=== PATIENT | female | born 1960 | race African-American/Black ===

== ENCOUNTER 2018-12-31 10:18 | Inpatient (IN) ==
[2018-12-31] MEDS ORDERED: ALBUTEROL/IPRATROPIUM 3 ML NEB RESP TX STA (11:19)
[2018-12-31] MEDS ORDERED: ONDANSETRON 4 MG/2 ML VIAL IV STA (11:19)
[2018-12-31] MEDS ORDERED: MORPHINE 4 MG/1 ML VIAL IV STA (11:19)
[2018-12-31 13:05] LABS: Basophils % 0.5 % (0.0-0.8); Eosinophils # 0.1 10*3/uL (0.0-0.87); Eosinophils % 1.8 % (0.00-10.9); Hematocrit 26.6 VOL% (35.7-47.0); Hemoglobin 8.1 GM/DL (12.0-16.0); Immature Granulocytes % 0.5 %; Immature Granulocytes Absolute 0.02 #; Lymphocytes # 0.7 10*3/uL (1.4-4.0); Lymphocytes % 16.3 % (21.3-54.2); Mean Corpuscular HGB Conc 30.5 GM/DL (32-36); Mean Corpuscular Volume 80.9 FL (87-102); Mean Platelet Volume 12.1 FL (9.6-12.0); Monocytes % 13.3 % (1.7-12.7); Neutrophils % 67.6 % (38.7-73.9); Platelet Count 207 T/CUMM (130-400); Red Blood Count 3.29 MC/CUMM (3.8-5.5); Red Cell Distribution Width 14.8 % (9.3-17.3); White Blood Count 4.4 T/CUMM (4-12)
[2018-12-31 13:12] LABS: INR 1.1
[2018-12-31 13:20] LABS: Alanine Aminotransferase 22 U/L (13-56); Albumin 2.3 G/DL (3.4-5.0); Alkaline Phosphatase 81 U/L (45-117); Aspartate Amino Transferase 31 U/L (0-37); Bilirubin,Total < 0.39 MG/DL (0.2-1.0); Blood Urea Nitrogen 25 MG/DL (7-18); Calcium 8.5 MG/DL (8.5-10.1); Glucose 88 MG/DL (74-106); Osmolality,Calculated 272.1 MOS/KG (273-304); Total Protein 6.3 G/DL (6.4-8.3)
[2018-12-31] MEDS ORDERED: ACETAMINOPHEN 325 MG TABLET PO PRN (14:55)
[2018-12-31] MEDS: ENOXAPARIN 100 MG/ML SYRINGE SUBCUT SCH (18:14)
[2018-12-31] MEDS: ALBUTEROL/IPRATROPIUM 3 ML NEB RESP TX SCH ×2 (20:16→23:20)
[2018-12-31] MEDS: amLODIPine 5 MG TABLET PO SCH (20:24)
[2018-12-31] MEDS: CARVEDILOL 3.125 MG TABLET PO SCH (20:24)
[2018-12-31] MEDS: CYPROHEPTADINE 4 MG TABLET PO SCH (20:24)
[2018-12-31] MEDS: busPIRone 10 MG TABLET PO SCH (20:24)
[2019-01-01] MEDS: ALBUTEROL/IPRATROPIUM 3 ML NEB RESP TX SCH ×3 (02:00→12:03)
[2019-01-01 05:10] LABS: Basophils % 0.5 % (0.0-0.8); Eosinophils # 0.1 10*3/uL (0.0-0.87); Eosinophils % 3.5 % (0.00-10.9); Hematocrit 25.5 VOL% (35.7-47.0); Hemoglobin 7.9 GM/DL (12.0-16.0); Immature Granulocytes % 0.7 %; Immature Granulocytes Absolute 0.03 #; Lymphocytes # 0.8 10*3/uL (1.4-4.0); Lymphocytes % 20.6 % (21.3-54.2); Mean Corpuscular Volume 79.9 FL (87-102); Mean Platelet Volume 10.5 FL (9.6-12.0); Monocytes % 15.2 % (1.7-12.7); Neutrophils % 59.5 % (38.7-73.9); Platelet Count 195 T/CUMM (130-400); Red Blood Count 3.19 MC/CUMM (3.8-5.5)
[2019-01-01] MEDS: ENOXAPARIN 100 MG/ML SYRINGE SUBCUT SCH ×2 (05:17→16:34)
[2019-01-01 05:49] LABS: Calcium 8.8 MG/DL (8.5-10.1); Osmolality,Calculated 279.7 MOS/KG (273-304); Risk Ratio 3.38; Thyroid Stimulating Hormone 2.66 uIU/ml (0.358-3.74); VLDL CHOLESTEROL 27.6 MG/DL
[2019-01-01] MEDS ORDERED: MORPHINE 4 MG/1 ML VIAL IV ONE (08:28)
[2019-01-01] MEDS ORDERED: SIMVASTATIN 10 MG TABLET PO SCH (09:00)
[2019-01-01] MEDS ORDERED: PANTOPRAZOLE 40 MG TABLET PO SCH (09:00)
[2019-01-01] MEDS ORDERED: [UNRECOGNIZED DRUG - OTHER] PO SCH (09:00)
[2019-01-01] MEDS: CYPROHEPTADINE 4 MG TABLET PO SCH ×2 (09:18→20:33)
[2019-01-01] MEDS: busPIRone 10 MG TABLET PO SCH ×2 (09:18→20:33)
[2019-01-01] MEDS: CARVEDILOL 3.125 MG TABLET PO SCH ×2 (09:18→20:33)
[2019-01-01] MEDS: POTASSIUM CHLORIDE 20 MEQ TABLET PO SCH (09:18)
[2019-01-01] MEDS: MULTIVITAMIN (CENTRUM) TABLET PO SCH (09:18)
[2019-01-01] MEDS: amLODIPine 5 MG TABLET PO SCH ×2 (09:19→20:33)
[2019-01-01] MEDS: PANTOPRAZOLE 40 MG TABLET PO SCH (09:19)
[2019-01-01] MEDS: ASPIRIN EC 81 MG TABLET PO SCH (09:19)
[2019-01-01 12:50] LABS: Apearance,Urine Slightly Hazy (Clear); Bacteria,Urine Occasional /HPF (Few); Bilirubin,Urine Negative (Negative); Blood, Urine Negative (Negative); Glucose,Urine (UA) Negative (Negative); Ketones,Urine 5 mg/dL (Negative); Mucus,Urine Occasional /LPF (Occasional); Nitrite,Urine Negative (Negative); Protein,Urine Negative; RBC,Urine 2 /HPF (0-4); Squamous Epithelial Cell,Urine Occasional /HPF (0-10); Urine Color Yellow (Yellow); Urine Urobilinogen < 2.0 EU/DL (0.2-1.0); WBC,Urine 9 /HPF (0-6)
[2019-01-01] MEDS ORDERED: clonazePAM 0.5 MG TABLET PO ONE (13:28)
[2019-01-01] MEDS ORDERED: ALBUTEROL 1.25 MG/3 ML NEB RESP TX PRN (14:12)
[2019-01-01] MEDS ORDERED: MAGNESIUM CITRATE 300 ML BOTTLE PO ONE (18:19)
[2019-01-01] MEDS: clonazePAM 0.5 MG TABLET PO SCH (20:34)
[2019-01-02] MEDS: HYDROmorphone 2 MG TABLET PO PRN (00:50)
[2019-01-02] MEDS: ENOXAPARIN 100 MG/ML SYRINGE SUBCUT SCH ×2 (04:50→17:00)
[2019-01-02] MEDS: HYDROmorphone 2 MG/1 ML VIAL IV PRN ×2 (05:19→21:33)
[2019-01-02 07:56] LABS: Basophils % 0.2 % (0.0-0.8); Eosinophils # 0.1 10*3/uL (0.0-0.87); Eosinophils % 2.2 % (0.00-10.9); Hematocrit 25.9 VOL% (35.7-47.0); Hemoglobin 7.9 GM/DL (12.0-16.0); Immature Granulocytes % 0.7 %; Immature Granulocytes Absolute 0.03 #; Lymphocytes # 0.7 10*3/uL (1.4-4.0); Lymphocytes % 16.8 % (21.3-54.2); Mean Corpuscular HGB Conc 30.5 GM/DL (32-36); Mean Corpuscular Volume 81.4 FL (87-102); Mean Platelet Volume 10.7 FL (9.6-12.0); Monocytes % 11.5 % (1.7-12.7); Neutrophils % 68.6 % (38.7-73.9); Platelet Count 217 T/CUMM (130-400); Red Blood Count 3.18 MC/CUMM (3.8-5.5); Red Cell Distribution Width 15.1 % (9.3-17.3); White Blood Count 4.2 T/CUMM (4-12)
[2019-01-02 08:12] LABS: Calcium 8.5 MG/DL (8.5-10.1); Osmolality,Calculated 279.8 MOS/KG (273-304)
[2019-01-02] MEDS: CYPROHEPTADINE 4 MG TABLET PO SCH ×2 (08:47→21:32)
[2019-01-02] MEDS: ASPIRIN EC 81 MG TABLET PO SCH (08:47)
[2019-01-02] MEDS: MULTIVITAMIN (CENTRUM) TABLET PO SCH (08:48)
[2019-01-02] MEDS: PANTOPRAZOLE 40 MG TABLET PO SCH (08:48)
[2019-01-02] MEDS: amLODIPine 5 MG TABLET PO SCH ×2 (08:48→21:32)
[2019-01-02] MEDS: CARVEDILOL 3.125 MG TABLET PO SCH ×2 (08:48→21:32)
[2019-01-02] MEDS: POTASSIUM CHLORIDE 20 MEQ TABLET PO SCH (08:48)
[2019-01-02] MEDS: clonazePAM 0.5 MG TABLET PO SCH ×2 (14:30→21:33)
[2019-01-02] MEDS: busPIRone 10 MG TABLET PO SCH ×3 (14:43→21:32)
[2019-01-02] MEDS: MORPHINE IR 15 MG TABLET PO PRN (18:30)
[2019-01-03 05:18] LABS: Basophils % 0.3 % (0.0-0.8); Eosinophils # 0.1 10*3/uL (0.0-0.87); Eosinophils % 1.7 % (0.00-10.9); Hematocrit 26.9 VOL% (35.7-47.0); Immature Granulocytes % 0.5 %; Immature Granulocytes Absolute 0.03 #; Lymphocytes # 0.9 10*3/uL (1.4-4.0); Lymphocytes % 14.8 % (21.3-54.2); Mean Corpuscular HGB Conc 29.7 GM/DL (32-36); Mean Platelet Volume 12.4 FL (9.6-12.0); Neutrophils % 68.7 % (38.7-73.9); Platelet Count 257 T/CUMM (130-400); Red Blood Count 3.24 MC/CUMM (3.8-5.5); Red Cell Distribution Width 15.4 % (9.3-17.3)
[2019-01-03] MEDS: ENOXAPARIN 100 MG/ML SYRINGE SUBCUT SCH ×2 (05:45→17:50)
[2019-01-03] MEDS: HYDROmorphone 2 MG/1 ML VIAL IV PRN (07:58)
[2019-01-03 08:19] LABS: Calcium 8.4 MG/DL (8.5-10.1); Osmolality,Calculated 278.1 MOS/KG (273-304)
[2019-01-03] MEDS: POTASSIUM CHLORIDE 20 MEQ TABLET PO SCH (08:31)
[2019-01-03] MEDS ORDERED: DEXTROSE 10% 250 ML BAG IV ONE (08:55)
[2019-01-03] MEDS ORDERED: CALCIUM GLUCONATE 1,000 MG in SODIUM CHLORIDE 0.9% 100 ML IV ONE (08:55)
[2019-01-03] MEDS ORDERED: INSULIN REGULAR 100 UNIT/ML IV ONE (08:55)
[2019-01-03] MEDS ORDERED: SODIUM BICARBONATE 50 MEQ/50 ML VIAL IV ONE (08:56)
[2019-01-03] MEDS ORDERED: SODIUM POLYSTYRENE SULFATE 15 GM/60 ML BOTTLE PO STA (08:57)
[2019-01-03] MEDS ORDERED: SODIUM CHLORIDE 0.9% 1,000 ML IV SCH (10:30)
[2019-01-03] MEDS ORDERED: MORPHINE 4 MG/1 ML VIAL IV PRN (10:44)
[2019-01-03] MEDS: ASPIRIN EC 81 MG TABLET PO SCH (12:29)
[2019-01-03] MEDS: clonazePAM 0.5 MG TABLET PO SCH ×2 (12:29→20:47)
[2019-01-03] MEDS: MULTIVITAMIN (CENTRUM) TABLET PO SCH (12:29)
[2019-01-03] MEDS: CARVEDILOL 3.125 MG TABLET PO SCH ×2 (12:29→20:47)
[2019-01-03] MEDS: CYPROHEPTADINE 4 MG TABLET PO SCH ×2 (12:29→20:47)
[2019-01-03] MEDS: PANTOPRAZOLE 40 MG TABLET PO SCH (12:30)
[2019-01-03] MEDS: busPIRone 10 MG TABLET PO SCH ×2 (12:30→20:47)
[2019-01-03] MEDS: amLODIPine 5 MG TABLET PO SCH ×2 (12:30→20:47)
[2019-01-03] MEDS ORDERED: SODIUM POLYSTYRENE SULFATE 15 GM/60 ML BOTTLE PO ONE (17:15)
[2019-01-04] MEDS: SODIUM CHLORIDE 0.9% 1,000 ML IV SCH ×2 (00:16→11:31)
[2019-01-04] MEDS: ENOXAPARIN 100 MG/ML SYRINGE SUBCUT SCH (04:55)
[2019-01-04 05:23] LABS: Basophils % 0.3 % (0.0-0.8); Eosinophils # 0.1 10*3/uL (0.0-0.87); Eosinophils % 0.8 % (0.00-10.9); Hematocrit 26.6 VOL% (35.7-47.0); Hemoglobin 7.9 GM/DL (12.0-16.0); Immature Granulocytes % 0.5 %; Immature Granulocytes Absolute 0.03 #; Lymphocytes # 0.9 10*3/uL (1.4-4.0); Lymphocytes % 14.5 % (21.3-54.2); Mean Corpuscular HGB Conc 29.7 GM/DL (32-36); Mean Corpuscular Volume 82.4 FL (87-102); Mean Platelet Volume 11.9 FL (9.6-12.0); Monocytes % 13.4 % (1.7-12.7); Neutrophils % 70.5 % (38.7-73.9); Platelet Count 276 T/CUMM (130-400); Red Blood Count 3.23 MC/CUMM (3.8-5.5); Red Cell Distribution Width 15.4 % (9.3-17.3); White Blood Count 6.2 T/CUMM (4-12)
[2019-01-04 05:26] LABS: PT Patient Result 10.9 SECS
[2019-01-04 05:43] LABS: Calcium 8.2 MG/DL (8.5-10.1); Osmolality,Calculated 276.5 MOS/KG (273-304)
[2019-01-04] MEDS: HYDROmorphone 2 MG TABLET PO PRN (05:58)
[2019-01-04] MEDS: MORPHINE IR 15 MG TABLET PO PRN ×3 (08:06→22:26)
[2019-01-04] MEDS: ASPIRIN EC 81 MG TABLET PO SCH (08:10)
[2019-01-04] MEDS: PANTOPRAZOLE 40 MG TABLET PO SCH (08:10)
[2019-01-04] MEDS: FLUCONAZOLE 200 MG TABLET PO SCH (08:10)
[2019-01-04] MEDS: MULTIVITAMIN (CENTRUM) TABLET PO SCH (08:10)
[2019-01-04] MEDS: clonazePAM 0.5 MG TABLET PO SCH ×2 (08:10→22:26)
[2019-01-04] MEDS: amLODIPine 5 MG TABLET PO SCH ×2 (08:10→22:26)
[2019-01-04] MEDS: busPIRone 10 MG TABLET PO SCH ×2 (08:11→22:26)
[2019-01-04] MEDS: CARVEDILOL 3.125 MG TABLET PO SCH ×2 (08:11→22:26)
[2019-01-04] MEDS: CYPROHEPTADINE 4 MG TABLET PO SCH ×2 (08:11→22:25)
[2019-01-04] MEDS: ONDANSETRON 4 MG/2 ML VIAL IV PRN (17:13)
[2019-01-04 18:31] LABS: Troponin I < 0.015 NG/ML (0.00-0.045)
[2019-01-04 21:10] LABS: Troponin I < 0.015 NG/ML (0.00-0.045)
[2019-01-05] MEDS: SODIUM CHLORIDE 0.9% 1,000 ML IV SCH ×2 (00:31→18:44)
[2019-01-05] MEDS: MORPHINE IR 15 MG TABLET PO PRN ×2 (02:11→09:14)
[2019-01-05 05:09] LABS: Basophils % 0.2 % (0.0-0.8); Eosinophils % 0.2 % (0.00-10.9); Hematocrit 25.8 VOL% (35.7-47.0); Hemoglobin 7.7 GM/DL (12.0-16.0); Immature Granulocytes % 0.6 %; Immature Granulocytes Absolute 0.05 #; Lymphocytes % 11.5 % (21.3-54.2); Mean Corpuscular HGB Conc 29.8 GM/DL (32-36); Mean Corpuscular Volume 83.5 FL (87-102); Mean Platelet Volume 11.6 FL (9.6-12.0); Monocytes % 8.7 % (1.7-12.7); Neutrophils % 78.8 % (38.7-73.9); Platelet Count 334 T/CUMM (130-400); Red Blood Count 3.09 MC/CUMM (3.8-5.5); Red Cell Distribution Width 15.8 % (9.3-17.3); White Blood Count 8.6 T/CUMM (4-12)
[2019-01-05 05:34] LABS: Alanine Aminotransferase 35 U/L (13-56); Albumin 2.3 G/DL (3.4-5.0); Alkaline Phosphatase 117 U/L (45-117); Aspartate Amino Transferase 44 U/L (0-37); Bilirubin,Direct < 0.100 MG/DL (0.0-0.20); Bilirubin,Indirect 0.6 MG/DL (0.0-1.0); Blood Urea Nitrogen 50 MG/DL (7-18); Calcium 8.3 MG/DL (8.5-10.1); Glucose 176 MG/DL (74-106); Osmolality,Calculated 276.8 MOS/KG (273-304); Total Protein 6.6 G/DL (6.4-8.3)
[2019-01-05] MEDS ORDERED: SODIUM CHLORIDE 0.9% 1,000 ML IV PRN ×2 (08:56→17:10)
[2019-01-05] MEDS: ONDANSETRON 4 MG/2 ML VIAL IV PRN ×2 (09:13→12:44)
[2019-01-05] MEDS: busPIRone 10 MG TABLET PO SCH ×2 (09:14→22:48)
[2019-01-05] MEDS: PANTOPRAZOLE 40 MG TABLET PO SCH (09:14)
[2019-01-05] MEDS: amLODIPine 5 MG TABLET PO SCH ×2 (09:14→22:30)
[2019-01-05] MEDS: ASPIRIN EC 81 MG TABLET PO SCH (09:14)
[2019-01-05] MEDS: clonazePAM 0.5 MG TABLET PO SCH ×2 (09:14→22:47)
[2019-01-05] MEDS: FLUCONAZOLE 200 MG TABLET PO SCH (09:14)
[2019-01-05] MEDS: CYPROHEPTADINE 4 MG TABLET PO SCH ×2 (09:14→22:48)
[2019-01-05] MEDS: MULTIVITAMIN (CENTRUM) TABLET PO SCH (09:14)
[2019-01-05] MEDS: CARVEDILOL 3.125 MG TABLET PO SCH ×2 (09:15→22:30)
[2019-01-05] MEDS ORDERED: clonazePAM 0.5 MG TABLET PO ONE (11:04)
[2019-01-05] MEDS: ENOXAPARIN 100 MG/ML SYRINGE SUBCUT SCH (12:44)
[2019-01-06] MEDS: clonazePAM 0.5 MG TABLET PO SCH ×3 (04:13→22:10)
[2019-01-06] MEDS: busPIRone 10 MG TABLET PO SCH ×3 (04:13→22:09)
[2019-01-06 05:14] LABS: Hematocrit 29.6 VOL% (35.7-47.0)
[2019-01-06 05:57] LABS: Basophils % 0.2 % (0.0-0.8); Hematocrit 30.6 VOL% (35.7-47.0); Lymphocytes # 1.2 10*3/uL (1.4-4.0); Lymphocytes % 11.1 % (21.3-54.2); Mean Corpuscular HGB Conc 29.4 GM/DL (32-36); Mean Corpuscular Volume 85.5 FL (87-102); Mean Platelet Volume 11.9 FL (9.6-12.0); Monocytes % 8.8 % (1.7-12.7); NRBC # 0.04 10*3/uL; Neutrophils % 78.9 % (38.7-73.9); Platelet Count 343 T/CUMM (130-400); Red Blood Count 3.58 MC/CUMM (3.8-5.5); Red Cell Distribution Width 15.8 % (9.3-17.3); White Blood Count 10.4 T/CUMM (4-12)
[2019-01-06 06:18] LABS: Calcium 8.3 MG/DL (8.5-10.1); Osmolality,Calculated 276.9 MOS/KG (273-304)
[2019-01-06] MEDS ORDERED: SODIUM POLYSTYRENE SULFATE 15 GM/60 ML BOTTLE PO ONE (07:06)
[2019-01-06] MEDS ORDERED: CALCIUM GLUCONATE 2,000 MG in SODIUM CHLORIDE 0.9% 100 ML IV ONE (09:12)
[2019-01-06] MEDS ORDERED: FUROSEMIDE 40 MG/4 ML VIAL IV ONE (10:50)
[2019-01-06] MEDS ORDERED: FUROSEMIDE 100 MG/10 ML VIAL ONE (10:53)
[2019-01-06] MEDS: CARVEDILOL 3.125 MG TABLET PO SCH ×2 (10:55→22:09)
[2019-01-06] MEDS: ASPIRIN EC 81 MG TABLET PO SCH (10:55)
[2019-01-06] MEDS: FLUCONAZOLE 200 MG TABLET PO SCH (10:55)
[2019-01-06] MEDS: amLODIPine 5 MG TABLET PO SCH ×2 (10:55→22:10)
[2019-01-06] MEDS: ENOXAPARIN 100 MG/ML SYRINGE SUBCUT SCH (10:56)
[2019-01-06] MEDS: methylPREDNISolone SOD SUC 40 MG/1 ML VIAL IV SCH ×2 (10:56→22:10)
[2019-01-06] MEDS: MULTIVITAMIN (CENTRUM) TABLET PO SCH (11:15)
[2019-01-06] MEDS: CYPROHEPTADINE 4 MG TABLET PO SCH (11:16)
[2019-01-06 12:39] LABS: Creatinine,Urine Random 143 MG/DL; Total Protein,Urine Random 480 MG/DL; Urea Nitrogen, Urine Random 117 MG/DL
[2019-01-06 16:31] LABS: Basophils % 0.1 % (0.0-0.8); Hematocrit 28.2 VOL% (35.7-47.0); Hemoglobin 8.5 GM/DL (12.0-16.0); Immature Granulocytes % 0.8 %; Immature Granulocytes Absolute 0.09 #; Lymphocytes # 0.7 10*3/uL (1.4-4.0); Lymphocytes % 6.7 % (21.3-54.2); Mean Corpuscular HGB Conc 30.1 GM/DL (32-36); Mean Corpuscular Volume 85.2 FL (87-102); Mean Platelet Volume 11.3 FL (9.6-12.0); Monocytes % 1.7 % (1.7-12.7); Neutrophils % 90.7 % (38.7-73.9); Platelet Count 319 T/CUMM (130-400); Red Blood Count 3.31 MC/CUMM (3.8-5.5); Red Cell Distribution Width 16.1 % (9.3-17.3)
[2019-01-06 16:36] LABS: Pt O2 Delivery Device Other
[2019-01-06 16:37] LABS: ABG Base Excess -4.5 MMOL/L (-2.5-2.5); ABG HCO3 20.6 MMOL/L (20-26); ABG Oxygen Saturation 92.3 % (95-100); ABG PCO2 47.4 MM HG (35-48); ABG PO2 74.6 MM HG (80-95); ABG TCO2 20.8 MMOL/L (23-27)
[2019-01-06 17:14] LABS: Albumin 2.5 G/DL (3.4-5.0); Bilirubin,Total 0.4 MG/DL (0.2-1.0); Calcium 8.5 MG/DL (8.5-10.1); Osmolality,Calculated 279.1 MOS/KG (273-304); Total Protein 6.9 G/DL (6.4-8.3)
[2019-01-06] MEDS ORDERED: SODIUM POLYSTYRENE SULFATE 15 GM/60 ML BOTTLE PO STA (17:23)
[2019-01-07] MEDS: CARVEDILOL 3.125 MG TABLET PO SCH ×2 (01:30→09:14)
[2019-01-07 06:40] LABS: Basophils % 0.1 % (0.0-0.8); Hematocrit 28.6 VOL% (35.7-47.0); Hemoglobin 8.5 GM/DL (12.0-16.0); Immature Granulocytes % 0.8 %; Immature Granulocytes Absolute 0.07 #; Lymphocytes # 0.7 10*3/uL (1.4-4.0); Lymphocytes % 8.2 % (21.3-54.2); Mean Corpuscular HGB Conc 29.7 GM/DL (32-36); Mean Corpuscular Volume 85.4 FL (87-102); Mean Platelet Volume 11.3 FL (9.6-12.0); Monocytes % 3.6 % (1.7-12.7); NRBC # 0.28 10*3/uL; Neutrophils % 87.3 % (38.7-73.9); Platelet Count 316 T/CUMM (130-400); Red Blood Count 3.35 MC/CUMM (3.8-5.5); Red Cell Distribution Width 16.3 % (9.3-17.3); White Blood Count 8.4 T/CUMM (4-12)
[2019-01-07 07:09] LABS: Calcium 8.7 MG/DL (8.5-10.1); Osmolality,Calculated 282.1 MOS/KG (273-304)
[2019-01-07] MEDS ORDERED: INSULIN REGULAR 100 UNIT/ML IV ONE (07:50)
[2019-01-07] MEDS ORDERED: DEXTROSE 50% 25 GM/50 ML VIAL IV ONE (07:50)
[2019-01-07] MEDS ORDERED: SODIUM BICARBONATE 50 MEQ/50 ML VIAL IV ONE (07:50)
[2019-01-07] MEDS ORDERED: CALCIUM GLUCONATE 2,000 MG in SODIUM CHLORIDE 0.9% 100 ML IV ONE (07:54)
[2019-01-07] MEDS ORDERED: NOREPINEPHRINE 8 MG in SODIUM CHLORIDE 0.9% 242 ML IV PRN (07:55)
[2019-01-07] MEDS ORDERED: DEXTROSE 10% 250 ML BAG IV ONE (08:10)
[2019-01-07] MEDS ORDERED: DEXTROSE 10% 250 ML IV PRN (08:12)
[2019-01-07 08:20] LABS: ABG Base Excess -4.4 MMOL/L (-2.5-2.5); ABG HCO3 20.6 MMOL/L (20-26); ABG Oxygen Saturation 90.5 % (95-100); ABG PCO2 48.7 MM HG (35-48); ABG PH 7.273 (7.35-7.45); ABG PO2 70.6 MM HG (80-95); ABG TCO2 21.1 MMOL/L (23-27); Allen Test Positive; Pt O2 Delivery Device Other
[2019-01-07 08:37] LABS: Anisocytosis 1+; Burr Cells Slight; Hypochromasia 1+; Lymphocytes 7 % (20-55); Microcytosis 1+; Segmented Neutrophils 92 % (50-85); Total Cells Counted 100
[2019-01-07 08:38] LABS: Acanthocytes Few; Ovalocytes Slight; Platelet Estimate Normal
[2019-01-07] MEDS: clonazePAM 0.5 MG TABLET PO SCH (09:10)
[2019-01-07] MEDS: ASPIRIN EC 81 MG TABLET PO SCH (09:10)
[2019-01-07] MEDS: FLUCONAZOLE 200 MG TABLET PO SCH (09:10)
[2019-01-07] MEDS: busPIRone 10 MG TABLET PO SCH (09:10)
[2019-01-07] MEDS: ENOXAPARIN 100 MG/ML SYRINGE SUBCUT SCH (09:11)
[2019-01-07] MEDS: methylPREDNISolone SOD SUC 40 MG/1 ML VIAL IV SCH (09:11)
[2019-01-07] MEDS: ALBUMIN 25% 25 GM in PREMIX 1 EACH IV SCH ×4 (09:12→18:04)
[2019-01-07] MEDS: amLODIPine 5 MG TABLET PO SCH (09:20)
[2019-01-07] MEDS: SODIUM BICARB INJ 150 MEQ in STERILE WATER INJ 850 ML IV SCH ×2 (09:38→12:10)
[2019-01-07] MEDS: miSOPROStol 200 MCG TABLET PO SCH ×2 (11:40→18:04)
[2019-01-07 13:23] LABS: ABG Base Excess -3.5 MMOL/L (-2.5-2.5); ABG HCO3 21.3 MMOL/L (20-26); ABG Oxygen Saturation 86.5 % (95-100); ABG PCO2 58.9 MM HG (35-48); ABG PH 7.229 (7.35-7.45); ABG PO2 64.6 MM HG (80-95); ABG TCO2 23.3 MMOL/L (23-27); Allen Test Positive; Pt O2 Delivery Device Other
[2019-01-07] MEDS ORDERED: CALCIUM GLUCONATE 1,000 MG/10 ML VIAL IV ONE (16:02)
[2019-01-07] MEDS ORDERED: CALCIUM CHLORIDE 1,000 MG/10 ML SYRINGE IV ONE (16:03)
[2019-01-07] MEDS ORDERED: EPINEPHrine 1 MG/ML VIAL ONE (16:03)
[2019-01-07] MEDS ORDERED: SODIUM BICARBONATE 50 MEQ/50 ML SYRINGE IV ONE (16:03)
[2019-01-07 17:40] VITALS: BP 0/0
== END 2019-01-07 19:45 | disposition expired | DRG 175 ==
LOC: N.ED 10:18 → SUATTDRO 14:07 → N.EDINP 14:07 → N.4E 14:43 → N.CC 01-06 16:21
PROVIDERS: ADMIT Internal Medicine; ATTEND Family Medicine
PROC: IRTHORA (2018-12-31 11:30)